=== PATIENT | female | born 1955 | race Caucasian/White ===

== ENCOUNTER → 2017-11-28 | Outpatient (CLI) | payer BC ==
--- NOTE | 2017-11-28 10:52 | Diagnostic Imaging Report ---
PROCEDURE: SOFT TISSUE HEAD/NECK US COMPARISON: None. INDICATIONS:Right Sided Pulsatile Neck Mass TECHNIQUE: Transverse and longitudinal de la rosa-scale sonographic images of the right neck were obtained. FINDINGS: No cystic or solid mass is identified in the right side of the neck. Slightly prominent nodes in the neck are noted. Measurements are 1.8 x 0.4 x 1.1 and 2.4 x 0.7 x 2.2 cm. These lymph nodes have a normal architectural pattern. CONCLUSION: 1. No cystic or solid mass. 2. Slightly prominent lymph nodes. Gt Copeland D.O. Dictated by: Gt Copeland D.O. on 11/28/2017 at 9:01 Electronically approved by: Gt Copeland D.O. on 11/28/2017 at 9:01
== END ==
LOC: US 07:35
PROVIDERS: ATTEND Family Medicine
DX: Z12.31 Encounter for screening mammogram for malignant neoplasm of breast (principal); R22.1 Localized swelling, mass and lump, neck
CPT/HCPCS: 76536; 77067; 93882

== ENCOUNTER → 2021-08-08 | Outpatient (CLI) | payer BC | LOC: US 07:34 | PROVIDERS: ATTEND Family Medicine | DX: Z12.31 Encounter for screening mammogram for malignant neoplasm of breast (principal); Z13.820 Encounter for screening for osteoporosis; N95.0 Postmenopausal bleeding | CPT/HCPCS: 76830; 76856; 77067; 77080 ==

== ENCOUNTER → 2021-09-19 | Outpatient (CLI) | payer BC | LOC: US 07:42 | PROVIDERS: ATTEND Family Medicine | DX: R59.1 Generalized enlarged lymph nodes (principal) | CPT/HCPCS: 76536 ==

== ENCOUNTER → 2022-03-20 | Outpatient (CLI) | payer BC | LOC: US 09:56 | PROVIDERS: ATTEND Urology | DX: N39.0 Urinary tract infection, site not specified (principal) | CPT/HCPCS: 76770 ==

== ENCOUNTER → 2022-08-31 | Outpatient (CLI) | payer BC ==
[~2022-08-31] MED LIST: IOPAMIDOL 370 MG/ML 100 ML INFUS..BTL INJ ONE; SODIUM CHLORIDE 0.9% 250ML 250 ML ONE
[2022-08-31 08:43] LABS: CREATININE, SERUM 0.71 mg/dL (0.57-1.11)
== END ==
LOC: CT 07:44
PROVIDERS: ATTEND Urology
DX: R35.0 Frequency of micturition (principal)
CPT/HCPCS: 36415; 74178; 82565; 84520; J7050; Q9967

== ENCOUNTER → 2024-11-19 | Outpatient (REF) | payer MEDICARE | LOC: MAMMO 14:19 | PROVIDERS: ATTEND Family Medicine | DX: Z12.31 Encounter for screening mammogram for malignant neoplasm of breast (principal) | CPT/HCPCS: 77067 ==